=== PATIENT | male | born 1955 | race Caucasian/White ===

== ENCOUNTER → 2017-04-04 | Outpatient (CLI) | payer MEDICARE | LOC: KOH-I 14:11 | DX: M51.36 Other intervertebral disc degeneration, lumbar region (principal); M54.16 Radiculopathy, lumbar region; G62.9 Polyneuropathy, unspecified; M51.27 Other intervertebral disc displacement, lumbosacral region; M51.26 Other intervertebral disc displacement, lumbar region | CPT/HCPCS: 72148 ==

== ENCOUNTER 2021-12-07 13:10 | Emergency (ER) | payer MEDICARE ==
[~2021-12-07 13:10] MED LIST: CIPRO500 MG PO; FLAGYL500 MG PO; JANUMET XR 1001 EACH PO; LEVAQUIN750 MG PO; LYRICA100 MG PO; NORCO 10-325 T1 EACH PO; XANAX1 MG PO
[2021-12-07] MEDS ORDERED: NORFLEX 100 MG100 MG PO (16:31)
[2021-12-07] MEDS ORDERED: Voltaren Gel 1% TOP (16:31)
[2021-12-07] MEDS ORDERED: MEDROL DOSEPAK 24 MG PO (16:31)
== END 2021-12-07 16:45 | disposition home or self-care (01) ==
LOC: ER1 13:10
DX: M54.16 Radiculopathy, lumbar region (principal); M54.17 Radiculopathy, lumbosacral region; M79.662 Pain in left lower leg; F17.200 Nicotine dependence, unspecified, uncomplicated; E11.9 Type 2 diabetes mellitus without complications
CPT/HCPCS: 72131; 96372; 99283; J1885; J2930

== ENCOUNTER 2021-12-12 10:09 | Emergency (ER) | payer MEDICARE ==
[~2021-12-12 10:09] MED LIST changes: +MEDROL DOSEPAK 24 MG PO; +NORFLEX 100 MG100 MG PO; +Voltaren Gel 1% TOP
[2021-12-12 11:31] LABS: HEMOGLOBIN 14.6 gm/dl (14.0-17.5); RED BLOOD COUNT 4.5 M/UL (4.20-5.50)
[2021-12-12 11:46] LABS: BUN/CREATININE RATIO 24 (0-10)
[2021-12-12] MEDS ORDERED: TORADOL 10 MG T10 MG PO (18:30)
[2021-12-12] MEDS ORDERED: BUTALB-ACETAMI1 EAC1 PO (20:30)
== END 2021-12-12 20:35 | disposition home or self-care (01) ==
LOC: ER1 10:09
PROVIDERS: Emergency Medicine
DX: M43.16 Spondylolisthesis, lumbar region (principal); M51.26 Other intervertebral disc displacement, lumbar region; M54.16 Radiculopathy, lumbar region; M51.27 Other intervertebral disc displacement, lumbosacral region; E11.9 Type 2 diabetes mellitus without complications; Z88.1 Allergy status to other antibiotic agents; F17.210 Nicotine dependence, cigarettes, uncomplicated
CPT/HCPCS: 72148; 80053; 82962; 83036; 85025; 96374; 96375; 96376; 99283; J1100; J2270; J2405

== ENCOUNTER → 2022-02-21 | Outpatient (CLI) | payer MEDICARE, OTHER ==
[~2022-02-21] MED LIST changes: +AMARYL2 MG PO; +BUTALB-ACETAMI1 EAC1 PO; +FENTANYL1 EACH TD; +GLUCOPHAGE 500500 MG PO; +HYDROCODON-ACE1 EAC6 PO; +JANUVIA100 MG PO; +LIPITOR10 MG PO; +NEURONTIN300 MG PO; +TORADOL 10 MG T10 MG PO
[2022-02-21 14:00] LABS: RED BLOOD COUNT 4.62 M/UL (4.20-5.50); WHITE BLOOD COUNT 9.8 K/UL (4.5-11.0)
[2022-02-21 14:34] LABS: BUN/CREATININE RATIO 21 (0-10)
== END ==
LOC: OPSV2 12:30 → EDSTATUS 12:30 → OPSV2 13:07
PROVIDERS: Orthopaedic Surgery
DX: Z01.818 Encounter for other preprocedural examination (principal); M48.061 Spinal stenosis, lumbar region without neurogenic claudication; M47.26 Other spondylosis with radiculopathy, lumbar region; M51.16 Intervertebral disc disorders with radiculopathy, lumbar region; M43.16 Spondylolisthesis, lumbar region; R91.1 Solitary pulmonary nodule; R94.31 Abnormal electrocardiogram [ECG] [EKG]
CPT/HCPCS: 36415; 71046; 80048; 81001; 83036; 85027; 85610; 85730; 87081; 93005

== ENCOUNTER → 2022-02-23 | Outpatient (CLI) | payer MEDICARE, OTHER | LOC: KOH-I 09:18 | DX: R93.89 Abnormal findings on diagnostic imaging of other specified body structures (principal); R91.8 Other nonspecific abnormal finding of lung field | CPT/HCPCS: 71250 ==

== ENCOUNTER → 2022-02-27 | Outpatient (CLI) | payer MEDICARE ==
[~2022-02-27] MED LIST changes: -GLUCOPHAGE 500500 MG PO; +METFORMIN HCL1000 MG PO; +ROXICODONE5 MG PO
== END ==
LOC: HEART 5 15:43
DX: R06.02 Shortness of breath (principal)
CPT/HCPCS: 94060; 94729

== ENCOUNTER 2022-03-01 05:23 | Inpatient (IN) | payer MEDICARE ==
[~2022-03-01] VITALS: Ht 175.3 cm; Wt 67.6 kg
[~2022-03-01 05:23] MED LIST changes: -ROXICODONE5 MG PO
[2022-03-01 06:58] LABS: BUN/CREATININE RATIO 22 (0-10)
[2022-03-01 14:35] LABS: RED BLOOD COUNT 3.79 M/UL (4.20-5.50); WHITE BLOOD COUNT 10.5 K/UL (4.5-11.0)
[2022-03-01 14:51] LABS: BUN/CREATININE RATIO 24 (0-10)
[2022-03-02 05:06] LABS: HEMOGLOBIN 10.3 gm/dl (14.0-17.5)
[2022-03-02 05:25] LABS: BUN/CREATININE RATIO 23 (0-10)
[2022-03-02 05:34] LABS: RED BLOOD COUNT 3.22 M/UL (4.20-5.50)
[2022-03-02] MEDS ORDERED: ROXICODONE5 MG PO (14:54)
[2022-03-03 05:42] LABS: HEMOGLOBIN 9.9 gm/dl (14.0-17.5); RED BLOOD COUNT 3.09 M/UL (4.20-5.50); WHITE BLOOD COUNT 9.9 K/UL (4.5-11.0)
[2022-03-03 05:58] LABS: BUN/CREATININE RATIO 16 (0-10)
[2022-03-04 04:54] LABS: HEMOGLOBIN 9.9 gm/dl (14.0-17.5); RED BLOOD COUNT 3.1 M/UL (4.20-5.50); WHITE BLOOD COUNT 8.4 K/UL (4.5-11.0)
[2022-03-04 05:14] LABS: BUN/CREATININE RATIO 15 (0-10)
[2022-03-05 03:51] LABS: HEMOGLOBIN 10.1 gm/dl (14.0-17.5); RED BLOOD COUNT 3.16 M/UL (4.20-5.50)
[2022-03-05 04:03] LABS: BUN/CREATININE RATIO 18 (0-10)
[2022-03-06 04:16] LABS: HEMOGLOBIN 10.2 gm/dl (14.0-17.5); RED BLOOD COUNT 3.2 M/UL (4.20-5.50); WHITE BLOOD COUNT 6.6 K/UL (4.5-11.0)
[2022-03-06 04:35] LABS: BUN/CREATININE RATIO 21 (0-10)
[2022-03-07 04:16] LABS: HEMOGLOBIN 9.7 gm/dl (14.0-17.5); RED BLOOD COUNT 3.05 M/UL (4.20-5.50); WHITE BLOOD COUNT 6.5 K/UL (4.5-11.0)
[2022-03-07 04:35] LABS: BUN/CREATININE RATIO 22 (0-10)
[2022-03-08 05:21] LABS: HEMOGLOBIN 9.2 gm/dl (14.0-17.5); RED BLOOD COUNT 2.88 M/UL (4.20-5.50)
[2022-03-08 06:11] LABS: BUN/CREATININE RATIO 27 (0-10)
[2022-03-09 03:58] LABS: HEMOGLOBIN 9.1 gm/dl (14.0-17.5); RED BLOOD COUNT 2.92 M/UL (4.20-5.50)
[2022-03-09 03:59] LABS: WHITE BLOOD COUNT 5.2 K/UL (4.5-11.0)
[2022-03-09 04:19] LABS: BUN/CREATININE RATIO 24 (0-10)
[2022-03-09] MEDS ORDERED: FLOMAX 0.4 MG0.4 MG PO (13:44)
[2022-03-09] MEDS ORDERED: FAMOTIDINE20 MG PO (13:44)
[2022-03-09] MEDS ORDERED: STIMULANT LAXA1 EACH PO (13:44)
[2022-03-09] MEDS ORDERED: POLYETHYLENE GL17 GM PO (13:44)
== END 2022-03-09 21:44 | DRG 455 ==
LOC: OR 05:23 → CCU 14:44
PROVIDERS: Family Medicine; ADMIT Orthopaedic Surgery
PROC: 0SB20ZZ Excision of Lumbar Vertebral Disc, Open Approach (ICD-10-PCS; 2022-03-01)
PROC: 01NB0ZZ Release Lumbar Nerve, Open Approach (ICD-10-PCS; 2022-03-01)
PROC: 4A11X4G Monitoring of Peripheral Nervous Electrical Activity, Intraoperative, External Approach (ICD-10-PCS; 2022-03-01)
PROC: 0SG10AJ Fusion of 2 or more Lumbar Vertebral Joints with Interbody Fusion Device, Posterior Approach, Anterior Column, Open Approach (ICD-10-PCS; principal; 2022-03-01 07:30)
PROC: 0SG1071 Fusion of 2 or more Lumbar Vertebral Joints with Autologous Tissue Substitute, Posterior Approach, Posterior Column, Open Approach (ICD-10-PCS; 2022-03-01 07:30)
DX: M48.061 Spinal stenosis, lumbar region without neurogenic claudication (principal); M54.16 Radiculopathy, lumbar region; M51.26 Other intervertebral disc displacement, lumbar region; E78.5 Hyperlipidemia, unspecified; Z20.822 Contact with and (suspected) exposure to COVID-19; K21.9 Gastro-esophageal reflux disease without esophagitis; F41.9 Anxiety disorder, unspecified; Z96.659 Presence of unspecified artificial knee joint; I12.9 Hypertensive chronic kidney disease with stage 1 through stage 4 chronic kidney disease, or unspecified chronic kidney disease; N18.9 Chronic kidney disease, unspecified; K64.9 Unspecified hemorrhoids; E78.00 Pure hypercholesterolemia, unspecified; F32.A Depression, unspecified; N40.0 Benign prostatic hyperplasia without lower urinary tract symptoms; E11.65 Type 2 diabetes mellitus with hyperglycemia; J31.0 Chronic rhinitis; K02.9 Dental caries, unspecified; J44.9 Chronic obstructive pulmonary disease, unspecified; G47.00 Insomnia, unspecified; F07.81 Postconcussional syndrome; E55.9 Vitamin D deficiency, unspecified; R94.5 Abnormal results of liver function studies; R91.8 Other nonspecific abnormal finding of lung field; M47.816 Spondylosis without myelopathy or radiculopathy, lumbar region; M89.38 Hypertrophy of bone, other site; K59.00 Constipation, unspecified; Z72.0 Tobacco use; Z90.49 Acquired absence of other specified parts of digestive tract; Z79.899 Other long term (current) drug therapy; Z88.0 Allergy status to penicillin; Z82.49 Family history of ischemic heart disease and other diseases of the circulatory system; Z68.21 Body mass index [BMI] 21.0-21.9, adult; Z79.891 Long term (current) use of opiate analgesic; Z86.018 Personal history of other benign neoplasm; Z87.820 Personal history of traumatic brain injury; Z87.19 Personal history of other diseases of the digestive system; Z87.898 Personal history of other specified conditions; Z80.1 Family history of malignant neoplasm of trachea, bronchus and lung; Z83.3 Family history of diabetes mellitus; Z80.3 Family history of malignant neoplasm of breast; Z71.6 Tobacco abuse counseling
CPT/HCPCS: 36415; 71045; 72100; 72110; 74160; 76000; 76705; 80048; 80053; 81001; 82962; 85025; 85027; 86850; 86900; 86901; 87040; 87077; 87086; 87186; 97110; 97116; 97116-GP-CQ; 97162; 97166; 97530; 97530-GP-CQ; 97535; A6212; C1713; C1762; C1781; J0330; J0690; J1040; J1100; J1170; J1644; J2001; J2250; J2370; J2405; J2704; J3010; J3370; J3475; J7030; J7040; J7120; Q9967; U0002